=== PATIENT | female | born 2000 | race Caucasian/White ===

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

== ENCOUNTER 2021-07-04 16:14 | Emergency (ER) | payer OTHER ==
[2021-07-04 17:54] LABS: Basophils % (A) 1 %; Eosinophils % (A) 1 %; HCT 42.9 % (34.0-46.0); HGB 14.6 gm/dL (11.4-16.0); Lymphocytes # (A) 1.8 k/uL (1.0-4.8); Lymphocytes % (A) 29 %; MCH 31.3 pg (25.0-35.0); MCHC 33.9 g/dL (31.0-37.0); MCV 92.2 fL (80.0-100.0); Monocytes # (A) 0.3 k/uL (0-1.0); Monocytes % (A) 4 %; Neutrophils # (A) 3.8 k/uL (1.3-7.7); Neutrophils % (A) 62 %; Platelet Count 218 k/uL (150-450); RBC 4.66 m/uL (3.80-5.40); RDW 12.6 % (11.5-15.5); WBC 6.1 k/uL (3.8-10.6)
[2021-07-04 18:03] LABS: ALT 11 U/L (4-34); AST 25 U/L (14-36); African American GFR (CKD) >90 (>60 ml/min/1.73 sqM); Albumin 4.8 g/dL (3.5-5.0); Alkaline Phosphatase 54 U/L (38-126); Anion Gap 12 mmol/L; Blood Urea Nitrogen 14 mg/dL (7-17); Calcium 9.7 mg/dL (8.4-10.2); Carbon Dioxide 23 mmol/L (22-30); Chloride 104 mmol/L (98-107); Glucose 89 mg/dL (74-99); Non-African American GFR(CKD) >90 (>60 ml/min/1.73 sqM); Sodium 139 mmol/L (137-145); Total Bilirubin 0.4 mg/dL (0.2-1.3); Total Protein 7.6 g/dL (6.3-8.2)
[2021-07-04 18:50] VITALS: RESP 20; TEMP 99.1
--- NOTE | 2021-07-04 19:01 | XR ---
EXAMINATION TYPE: XR chest 2V DATE OF EXAM: 07/04/2021 COMPARISON: Chest radiograph April 07, 2017. HISTORY: Cough TECHNIQUE: Frontal and lateral views of the chest are obtained. FINDINGS: There is no focal air space opacity, pleural effusion, or pneumothorax seen. The cardiac silhouette size is within normal limits. The osseous structures are intact. IMPRESSION: No acute cardiopulmonary process.
--- NOTE | 2021-07-04 19:21 | ED ---
General Adult HPI - General Chief complaint: Upper Respiratory Infection Stated complaint: pneumonia, poss C-Diff Time Seen by Provider: 07/04/21 17:15 Source: patient, RN notes reviewed, old records reviewed Mode of arrival: ambulatory Limitations: no limitations - History of Present Illness Initial comments: This is a 21-year-old female presents emergency department stating that she was diagnosed with pneumonia 3 days ago patient states she's on Augmentin and Zithromax prednisone and Tessalon Perles. Patient states she still feels as though it's difficult to get a full breath and she still thinks she might have worsening pneumonia. Patient denies any significant chest pain. Patient denies any fever chills in fact states she's never had any fever. Patient states she's been tested for COVID His been negative. Patient states she does have an occasional cough. - Related Data Previous Rx's Medication Instructions Recorded Ondansetron Odt [Zofran ODT] 4 mg PO Q8HR PRN #20 tab 04/30/15 Ibuprofen [Motrin] 600 mg PO Q6HR PRN #20 tab 07/04/21 Allergies Allergy/AdvReac Type Severity Reaction Status Date / Time latex Allergy Rash/Hives Verified 07/04/21 17:16 codeine AdvReac altered Verified 07/04/21 17:16 mental-depression red dye AdvReac Nausea & Verified 07/04/21 17:16 Vomiting tuna fish Allergy Nausea & Uncoded 07/04/21 17:16 Vomiting Review of Systems ROS Statement: Those systems with pertinent positive or pertinent negative responses have been documented in the HPI. ROS Other: All systems not noted in ROS Statement are negative. Past Medical History Past Medical History: Hearing Disorder / Deafness Additional Past Medical History / Comment(s): Meningitis as infant; Migraines, History of Any Multi-Drug Resistant Organisms: None Reported Past Surgical History: No Surgical Hx Reported Past Psychological History: Anxiety, Bipolar, PTSD Smoking Status: Current every day smoker Past Alcohol Use History: Abuse, Daily, Heavy Past Drug Use History: Cocaine General Exam - General Exam Comments Initial Comments: GENERAL: Patient is well-developed and well-nourished. Patient is nontoxic and well- hydrated and is in no acute distress. ENT: Neck is soft and supple. No significant lymphadenopathy is noted. Oropharynx is clear. Moist mucous membranes. Neck has full range of motion without eliciting any pain. EYES: The sclera were anicteric and conjunctiva were pink and moist. Extraocular movements were intact and pupils were equal round and reactive to light. Eyelids were unremarkable. PULMONARY: Unlabored respirations. Good breath sounds bilaterally. No audible rales rhonchi or wheezing was noted. CARDIOVASCULAR: There is a regular rate and rhythm without any murmurs gallops or rubs. ABDOMEN: Soft and nontender with normal bowel sounds. SKIN: Skin is clear with no lesions or rashes and otherwise unremarkable. NEUROLOGIC: Patient is alert and oriented x3. Cranial nerves II through XII are grossly intact. Motor and sensory are also intact. Normal speech, volume and content. Symmetrical smile. MUSCULOSKELETAL: Normal extremities with adequate strength and full range of motion. No lower extremity swelling or edema. No calf tenderness. LYMPHATICS: No significant lymphadenopathy is noted PSYCHIATRIC: Normal psychiatric evaluation. Limitations: no limitations Course Vital Signs 07/04/21 07/04/21 07/04/21 17:12 18:43 18:49 Temperature 99 F 99.1 F Pulse Rate 75 69 Respiratory 18 24 20 Rate Blood Pressure 113/69 117/71 O2 Sat by Pulse 99 99 Oximetry Medical Decision Making - Medical Decision Making Chest x-ray shows no acute abnormality. - Lab Data Result diagrams: 07/04/21 17:35 07/04/21 17:35 Lab Results 07/04/21 07/04/21 07/04/21 Range/Units 17:35 17:35 19:03 WBC 6.1 (3.8-10.6) k/uL RBC 4.66 (3.80-5.40) m/uL Hgb 14.6 (11.4-16.0) gm/dL Hct 42.9 (34.0-46.0) % MCV 92.2 (80.0-100.0) fL MCH 31.3 (25.0-35.0) pg MCHC 33.9 (31.0-37.0) g/dL RDW 12.6 (11.5-15.5) % Plt Count 218 (150-450) k/uL MPV 7.0 Neutrophils % 62 % Lymphocytes % 29 % Monocytes % 4 % Eosinophils % 1 % Basophils % 1 % Neutrophils # 3.8 (1.3-7.7) k/uL Lymphocytes # 1.8 (1.0-4.8) k/uL Monocytes # 0.3 (0-1.0) k/uL Eosinophils # 0.0 (0-0.7) k/uL Basophils # 0.0 (0-0.2) k/uL D-Dimer <0.17 (<0.60) mg/L FEU Sodium 139 (137-145) mmol/L Potassium 4.0 (3.5-5.1) mmol/L Chloride 104 (98-107) mmol/L Carbon Dioxide 23 (22-30) mmol/L Anion Gap 12 mmol/L BUN 14 (7-17) mg/dL Creatinine 0.65 (0.52-1.04) mg/dL Est GFR (CKD-EPI)AfAm >90 (>60 ml/min/1.73 sqM) Est GFR (CKD-EPI)NonAf >90 (>60 ml/min/1.73 sqM) Glucose 89 (74-99) mg/dL Calcium 9.7 (8.4-10.2) mg/dL Total Bilirubin 0.4 (0.2-1.3) mg/dL AST 25 (14-36) U/L ALT 11 (4-34) U/L Alkaline Phosphatase 54 (38-126) U/L Total Protein 7.6 (6.3-8.2) g/dL Albumin 4.8 (3.5-5.0) g/dL Disposition Clinical Impression: Pleurisy Disposition: HOME SELF-CARE Condition: Good Instructions (If sedation given, give patient instructions): Pleurisy (ED) Prescriptions: Ibuprofen [Motrin] 600 mg PO Q6HR PRN #20 tab PRN Reason: For pain Is patient prescribed a controlled substance at d/c from ED?: No Referrals: Dax Hairston MD [Primary Care Provider] - 1-2 days Time of Disposition: 19:52
[2021-07-04 20:08] VITALS: BP 127/82; PULSE 82
== END 2021-07-04 20:16 | disposition home or self-care (01) ==
LOC: EC 16:14
DX: R09.1 Pleurisy (principal); F41.9 Anxiety disorder, unspecified; F31.9 Bipolar disorder, unspecified; F17.200 Nicotine dependence, unspecified, uncomplicated; Z20.822 Contact with and (suspected) exposure to COVID-19; Z91.040 Latex allergy status; Z88.6 Allergy status to analgesic agent; Z91.013 Allergy to seafood
CPT/HCPCS: 36415; 71046; 80053; 85025; 85379; 99283

== ENCOUNTER → 2022-06-30 | Outpatient (CLI) | payer OTHER ==
--- NOTE | 2022-06-30 08:33 | US ---
EXAMINATION TYPE: Transabdominal DATE OF EXAM: 06/30/2022 7:31 AM COMPARISON: NONE CLINICAL HISTORY: Z36.89 ENCOUNTER FOR OTHER SPECIFIED SCR. confirm dates. Positive beta hC G test. EXAM PERFORMED: Transabdominal (TA) EXAM MEASUREMENTS: GESTATIONAL AGE / DATING Physician Established: Not yet established Dates by LMP: (14 weeks/1 days) EDC: 12/28/2022 Dates by First Scan: No previous this is first scan Dates by Current Scan for: (14 weeks/2 days) EDC: 12/27/2022 MATERNAL ANATOMY Uterus: 14 x 6.9 x 9.0 cm Right Ovary: obscured by bowel gas Left Ovary: obscured by bowel gas Post CDS / Adnexa: wnl Presence of free fluid: no Presence of corpus luteal cyst: no Presence of subchorionic bleed: yes .8 x .8 x .8 cm. GESTATION / SURVEY CRL: .82 cm (14 weeks/2 days) Heart Rate: 152 bpm Rhythm: Normal IUP: Viable IUP Single live intrauterine gestation is confirmed as gestational sac and pole are seen. Yolk sac not clearly identified. Possible tiny subchorionic hemorrhage measuring near 8 mm adjacent to gestati onal sac. No free fluid in pelvis. Neither ovary identified. No suspicious adnexal mass seen. IMPRESSION: Single live intrauterine gestation is confirmed. Mean crown-rump length 8.3 cm correspond ing to 14 weeks 2 day old fetus
== END | disposition home or self-care (01) ==
LOC: RADUSWWP 07:05
PROVIDERS: ATTEND Obstetrics & Gynecology
DX: Z36.89 Encounter for other specified antenatal screening (principal); Z3A.14 14 weeks gestation of pregnancy
CPT/HCPCS: 76801

== ENCOUNTER → 2022-08-25 | Outpatient (CLI) | payer OTHER | END | disposition home or self-care (01) | LOC: LABWHC1 12:41 | PROVIDERS: ATTEND Obstetrics & Gynecology | DX: Z34.82 Encounter for supervision of other normal pregnancy, second trimester (principal); Z3A.00 Weeks of gestation of pregnancy not specified | CPT/HCPCS: 36415; 82105; 82677; 84702; 86336 ==

== ENCOUNTER 2022-11-25 09:11 | Inpatient (IN) | payer OTHER ==
[2022-11-25] MEDS ORDERED: LIDOCAINE 0.5% (PF) 5 MG/ML (50 ML SDV) SQ PRN (09:45)
[2022-11-25] MEDS ORDERED: TERBUTALINE 1 MG/ML VIAL SQ PRN (09:45)
[2022-11-25] MEDS: LACTATED RINGERS 1,000 ML IV SCH ×2 (10:20→18:06)
[2022-11-25] MEDS ORDERED: AMPICILLIN 2,000 MG in SODIUM CHLORIDE 0.9% 100 ML IVPB STA (10:37)
[2022-11-25 10:42] LABS: Basophils # (A) 0.1 k/uL (0-0.2); Basophils % (A) 0 %; Eosinophils # (A) 0.1 k/uL (0-0.7); Eosinophils % (A) 1 %; HCT 31.7 % (34.0-46.0); HGB 11.3 gm/dL (11.4-16.0); Lymphocytes # (A) 1.7 k/uL (1.0-4.8); Lymphocytes % (A) 12 %; MCH 32.6 pg (25.0-35.0); MCHC 35.8 g/dL (31.0-37.0); Mean Platelet Volume 8.5; Monocytes # (A) 0.8 k/uL (0-1.0); Monocytes % (A) 5 %; Neutrophils # (A) 11.3 k/uL (1.3-7.7); Neutrophils % (A) 80 %; Platelet Count 229 k/uL (150-450); RBC 3.48 m/uL (3.80-5.40); RDW 12.4 % (11.5-15.5)
[2022-11-25] MEDS ORDERED: OXYTOCIN 30 UNITS/500 ML NS 30 UNIT in SALINE 1 500ML.BAG IV SCH (10:45)
[2022-11-25] MEDS ORDERED: SODIUM CHLORIDE 0.9% 100 ML BAG ONE (13:12)
[2022-11-25] MEDS ORDERED: BUPIVACAINE (PF) 0.25% 30 ML VIAL ONE (13:12)
[2022-11-25] MEDS ORDERED: fentaNYL (PF) 50 MCG/ML 5 ML AMP ONE (13:12)
[2022-11-25] MEDS ORDERED: AMPICILLIN 1,000 MG in SODIUM CHLORIDE 0.9% 50 ML IVPB SCH (14:45)
[2022-11-25 16:01] LABS: Amphetamine Screen,Urine Not Detected (NotDetected); Benzodiazepines Screen,Urine Not Detected (NotDetected); Cocaine Screen,Urine Not Detected (NotDetected); Opiate Screen,Urine Not Detected (NotDetected); Phencyclidine Screen,Urine Not Detected (NotDetected); Urn Cannabinoid Scrn Detected (NotDetected)
[2022-11-25 16:02] LABS: Barbiturate Screen,Urine Not Detected (NotDetected); Methadone Screen, Urine Not Detected (NotDetected); Oxycodone Screen, Urine Not Detected (NotDetected); Tricyclic Antidepressant,Urine Not Detected (NotDetected)
--- NOTE | 2022-11-25 16:42 | P.HPOB ---
History of Present Illness H&P Date: 11/25/22 Chief Complaint: srom 22 year old presents at 35 weeks 2 days with SROM at 12:30 AM. Patient presented to labor and delivery in the morning and was 1-2 cm dilated, 70% e ffaced, and -1 station. She is olive irregularly. heart tones 135 with moderate variability and reactive. Review of Systems All systems: negative Constitutional: Denies chills, Denies fever Eyes: denies blurred vision, denies pain Ears, nose, mouth and throat: Denies headache, Denies sore throat Cardiovascular: Denies chest pain, Denies shortness of breath Respiratory: Denies cough Gastrointestinal: Denies abdominal pain, Denies diarrhea, Denies nausea, Denies vomiting Genitourinary: Denies dysuria, Denies hematuria Musculoskeletal: Denies myalgias Integumentary: Denies pruritus, Denies rash Neurological: Denies numbness, Denies weakness Psychiatric: Denies anxiety, Denies depression Endocrine: Denies fatigue, Denies weight change Past Medical History Past Medical History: Hearing Disorder / Deafness Additional Past Medical History / Comment(s): Meningitis as ; Migraines. OB history: Patient has had limited care as she went to maternal medicine to see what bipolar medication should she be on and didn't realize she needed to also see Dr. Salguero. She has used THC through the and BuSpar. Blood type is O-, antibodies negative, rubella immune, hepatitis B negative HIV negative GBS unknown. History of Any Multi-Drug Resistant Organisms: None Reported Past Surgical History: No Surgical Hx Reported Past Anesthesia/Blood Transfusion Reactions: No Reported Reaction Past Psychological History: Anxiety, Bipolar, PTSD Smoking Status: Current every day smoker Past Alcohol Use History: Abuse, Daily, Heavy Additional Past Alcohol Use History / Comment(s): Used to attend , no alcohol use during Past Drug Use History: Cocaine, Marijuana Additional Drug Use History / Comment(s): Current every day vape and THC use during - Past Family History Mother History Unknown: Yes Medications and Allergies Home Medications Medication Instructions Recorded Confirmed Type busPIRone HCl [Buspar] 5 mg PO BID 11/25/22 11/25/22 History Allergies Allergy/AdvReac Type Severity Reaction Status Date / Time buspirone [From BuSpar] Allergy Rash/Hives Verified 11/25/22 09:31 latex Allergy Rash/Hives Verified 11/25/22 09:31 codeine AdvReac altered Verified 11/25/22 09:31 mental-depression red dye AdvReac Nausea & Verified 11/25/22 09:31 Vomiting tuna fish Allergy Nausea & Uncoded 11/25/22 09:31 Vomiting Exam Osteopathic Statement: *. No significant issues noted on an osteopathic structural exam other than those noted in the History and Physical/Consult. Vital Signs Temp Pulse Resp BP Pulse Ox 11/25/22 10:32 98.1 F 64 17 131/62 97 11/25/22 09:40 98.1 F 64 17 131/62 94 L Intake and Output 11/25/22 11/25/22 11/25/22 06:59 14:59 22:59 Output Total 400 Balance -400 Output: Urine 400 Other: Weight 82.1 kg Heart: Regular rate and rhythm Lungs: Clear to auscultation bilaterally Abdomen: Soft, nontender Extremities: Negative Homans sign Results Result Diagrams: 11/25/22 10:20 Abnormal Lab Results - Last 24 Hours (Table) 11/25/22 11/25/22 Range/Units 10:20 14:30 WBC 14.0 H (3.8-10.6) k/uL RBC 3.48 L (3.80-5.40) m/uL Hgb 11.3 L (11.4-16.0) gm/dL Hct 31.7 L (34.0-46.0) % Neutrophils # 11.3 H (1.3-7.7) k/uL U Marijuana (THC) Screen Detected H (NotDetected) Assessment and Plan (1) premature rupture of membranes Current Visit: Yes Status: Acute Code(s): O42.919 - PRETRM JUAN ROM, UNSP TIME BETW RUPT AND ONST LABR, UNSP TRI SNOMED Code(s): 729997184 Plan: 1. Admit to family place 2. Antibiotic prophylaxis 3. Pitocin augmentation 4. UDS 5. Epidural for pain management
[2022-11-25] MEDS ORDERED: diphenhydrAMINE 50 MG CAP PO PRN (17:27)
[2022-11-25] MEDS ORDERED: ZOLPIDEM 5 MG TAB PO PRN (17:27)
[2022-11-25] MEDS ORDERED: diphenhydrAMINE 50 MG/ML 1 ML VIAL IVP PRN ×2 (17:27)
[2022-11-25] MEDS ORDERED: BENZOCAINE/MENTHOL SPRAY 1 GM/SPRAY AEROSOL TOPICAL PRN (17:27)
[2022-11-25] MEDS ORDERED: LANOLIN CREAM 5 GM TUBE TOPICAL PRN (17:27)
[2022-11-25] MEDS ORDERED: diphenhydrAMINE 25 MG CAP PO PRN (17:27)
[2022-11-25] MEDS ORDERED: SIMETHICONE 80 MG CHEWABLE PO PRN (17:27)
[2022-11-25] MEDS ORDERED: HYDROCORTISONE 2.5% RECTAL CREAM 30 GM TUBE RECTAL PRN (17:27)
[2022-11-25 18:00] VITALS: RESP 16
[2022-11-25] MEDS: IBUPROFEN 600 MG TAB PO PRN (19:29)
[2022-11-25] MEDS: SENNOSIDES-DOCUSATE SODIUM 1 EACH TAB PO SCH (19:29)
[2022-11-25] MEDS ORDERED: Rhogam IMMUNE GLOBULIN 1,500 UNIT/1 ML IM ONE (23:21)
[2022-11-25] MEDS: ACETAMINOPHEN TAB 325 MG TAB PO PRN (23:27)
[2022-11-26 06:49] LABS: Basophils % (A) 0 %; Eosinophils # (A) 0.2 k/uL (0-0.7); Eosinophils % (A) 1 %; HCT 28.9 % (34.0-46.0); HGB 10.2 gm/dL (11.4-16.0); Lymphocytes # (A) 1.6 k/uL (1.0-4.8); Lymphocytes % (A) 11 %; MCH 32.4 pg (25.0-35.0); MCHC 35.3 g/dL (31.0-37.0); MCV 91.9 fL (80.0-100.0); Mean Platelet Volume 8.2; Monocytes # (A) 1.1 k/uL (0-1.0); Monocytes % (A) 7 %; Neutrophils # (A) 11.7 k/uL (1.3-7.7); Neutrophils % (A) 79 %; Platelet Count 232 k/uL (150-450); RBC 3.14 m/uL (3.80-5.40); RDW 12.4 % (11.5-15.5); WBC 14.8 k/uL (3.8-10.6)
[2022-11-26] MEDS: ACETAMINOPHEN TAB 325 MG TAB PO PRN ×2 (06:56→14:09)
[2022-11-26] MEDS: SENNOSIDES-DOCUSATE SODIUM 1 EACH TAB PO SCH (07:57)
--- NOTE | 2022-11-26 09:07 | P.PROBDLV ---
Vaginal Delivery Note - . Vaginal Delivery Note: 22 year old presents at 35 weeks 2 days with SROM at 12:30 AM. Patient presented to labor and delivery in the morning and was 1-2 cm dilated, 70% effaced, and -1 station. She is olive irregularly. heart tones 135 with moderate variability and reactive. She presented in the morning with a positive amnio sure. She was noted to be leaking clear fluid. Antibiotics were started for GBS prophylaxis. Pitocin augmentation was started. Her cervix was completely dilated by 1559. She pushed, delivered a viable male infant over intact perineum under epidural anesthesia at 1610. Head delivered OA, nuchal cord 1 easily reduced, anterior shoulder delivered gentle downward guidance followed by posterior shoulder and rest of body. Nose and mouth bulb suctioned, cord clamped and cut, infant placed mother's abdomen. Apgars 8, 9, weight 6 lbs. 4 oz. Placenta delivered spontaneously, intact with three-vessel cord at 1614. Vagina, cervix, perineum inspected. Second-degree midline laceration was repaired with 3-0 Vicryl. Estimated blood loss 400 mL. Mother and baby in stable condition.
--- NOTE | 2022-11-26 09:11 | P.DS ---
Providers Date of admission: 11/25/22 09:38 Expected date of discharge: 11/26/22 Attending physician: Italia Salguero Primary care physician: Stated None - Discharge Diagnosis(es) (1) premature rupture of membranes Current Visit: Yes Status: Acute Hospital Course: Patient presented with spontaneous rupture of membranes at 35 weeks and 2 days. She underwent a normal vaginal delivery with Pitocin augmentation and antibiotic prophylaxis. course was uncomplicated for the patient. She denies nausea, vomiting, chest pain, shortness of breath or calf pain. The baby was transferred to [place] for her respiratory distress. Patient requests to be discharged home today. She is stable and will be discharged home day #1 to follow-up with Dr. Salguero in 6 weeks. Plan - Discharge Summary New Discharge Prescriptions: New RX: Ibuprofen [Motrin] 600 mg PO Q6HR PRN #30 tab PRN Reason: Mild Pain (Scale 1 To 3) No Action busPIRone HCl [Buspar] 5 mg PO BID Discharge Medication List busPIRone HCl [Buspar] 5 mg PO BID 11/25/22 [History] RX: Ibuprofen [Motrin] 600 mg PO Q6HR PRN #30 tab 11/26/22 [Rx] Follow up Appointment(s)/Referral(s): Italia Salguero DO [Doctor of Osteopathic Medicine] - 6 Weeks Discharge Disposition: HOME SELF-CARE
[2022-11-26] MEDS: IBUPROFEN 600 MG TAB PO PRN (09:39)
[2022-11-26 12:21] VITALS: BP 116/69; PULSE 69; TEMP 98.6
--- NOTE | 2022-11-26 14:46 | P.MSEPDOC ---
Presenting Problems - Arrival Data Date of Arrival on Unit: 11/25/22 Time of Arrival on Unit: 09:38 Mode of Transport: Wheelchair - Complaint OB-Reason for Admission/Chief Complaint: Rule Out SROM Comment: Pt presents to triage with c/o "losing mucus plug around 0030 or 0100" and leaking fluid throughout the night. Medical History - Information : 1 Para: 0 Term: 0 : 0 Abortions: Spontaneous or Elective: 0 Number of Living Children: 0 - Gestational Age Gestational Age by BETTY (wks/days): 35 Weeks and 3 Days Review of Systems - Review of Systems Constitutional: No problems Breast: No problems ENT: No problems Cardiovascular: No problems Respiratory: No problems Gastrointestinal: No problems Genitourinary: No problems Musculoskeletal: No problems Neurological: No problems Skin: No problems Vital Signs - Temperature Temperature: 98.6 F Temperature Source: Oral - Pulse Pulse Oximetery Pulse Rate: 69 Pulse Assessment Method: Pulse Oximetry - Respirations Respiratory Rate: 16 Oxygen Delivery Method: Room Air O2 Sat by Pulse Oximetry: 99 - Blood Pressure Right Arm Blood Pressure: 116/69 Blood Pressure Mean: 84 Blood Pressure Source: Automatic Cuff Medical Screen Scoring - Cervical Exam Dilation (cm): 1.5 Effacement (%): 60 Station: -1 Membranes: Ruptured - Uterine Contractions Resting: Soft to palpation - Assessment - Baby A Baseline FHR: 125 Heart Rate - NICHD Category: Category I (Normal) NST: Reactive Physician Notification - Physician Notified Physician Notified Date: 11/25/22 Physician Notified Time: 09:40 Physician: Mirian Khan New Order Received: Yes - Notification Comment Comment: RN spoke with Dr. Khan regarding triage pt c/o losing her mucus plug around [id number] this morning and leaking ever since. Reported maternal vital signs, vilma 1 FHT, reactive NST, no contx, positive amnisure and cervical exam of 1.5/60/-1. Orders received to admit pt for labor, start antibiotics for unknown GBS and start pitocin Maternal Triage Index - Maternal Triage Index Presenting for scheduled procedure w/no complaint: No - Stat/Priority 1 Stat Priority 1: No - Urgent/Priority 2 Urgent Priority 2: No - Prompt/Priority 3 Prompt Priority 3: Yes Criteria Met for Priority 3: c/o SROM/leaking 35 2/7 weeks Disposition - Disposition OB Disposition: Admit, LDRP Suite Transferred to:: Suite 6 I agree with the RN Medical Screening Exam: Yes Case reviewed; plan agreed upon as documented in EMR&OBIX.: Yes Diagnosis: ENCOUNTER FOR FULL-TERM UNCOMPLICATED DELIVERY
== END 2022-11-26 14:54 | disposition home or self-care (01) | DRG 806 ==
LOC: FBPOP 09:11 → 4FBP 09:38
PROVIDERS: ADMIT Obstetrics & Gynecology; ATTEND Obstetrics & Gynecology
PROC: 10E0XZZ Delivery of Products of Conception, External Approach (ICD-10-PCS; principal; 2022-11-25)
PROC: 0KQM0ZZ Repair Perineum Muscle, Open Approach (ICD-10-PCS; 2022-11-25)
PROC: 4A0HXCZ Measurement of Products of Conception, Cardiac Rate, External Approach (ICD-10-PCS; 2022-11-25)
PROC: 3E033VJ Introduction of Other Hormone into Peripheral Vein, Percutaneous Approach (ICD-10-PCS; 2022-11-25)
DX: O42.913 Preterm premature rupture of membranes, unspecified as to length of time between rupture and onset of labor, third trimester (principal); O99.324 Drug use complicating childbirth; Z37.0 Single live birth; F31.9 Bipolar disorder, unspecified; F43.10 Post-traumatic stress disorder, unspecified; H91.90 Unspecified hearing loss, unspecified ear; O26.893 Other specified pregnancy related conditions, third trimester; O69.81X0 Labor and delivery complicated by cord around neck, without compression, not applicable or unspecified; O99.334 Smoking (tobacco) complicating childbirth; O70.1 Second degree perineal laceration during delivery; O99.344 Other mental disorders complicating childbirth; Z3A.35 35 weeks gestation of pregnancy; F12.90 Cannabis use, unspecified, uncomplicated; F17.290 Nicotine dependence, other tobacco product, uncomplicated; Z79.899 Other long term (current) drug therapy; Z86.61 Personal history of infections of the central nervous system; Z91.040 Latex allergy status; Z91.013 Allergy to seafood; Z91.048 Other nonmedicinal substance allergy status
CPT/HCPCS: 59025; 80306; 84112; 85025; 85461; 86850; 86870; 86880; 86900; 86901; 88307; 99213

== ENCOUNTER → 2023-07-04 | Outpatient (CLI) | payer OTHER ==
--- NOTE | 2023-07-04 14:17 | US ---
EXAMINATION TYPE: US pelvic complete DATE OF EXAM: 07/04/2023 COMPARISON: Pelvic ultrasound 01/17/2023 CLINICAL INDICATION: Female, 23 years old with history of R10.2 PELVIC AND PERINEAL PAIN; TECHNIQUE: Transabdominal (TA). Transabdominal sonographic images of the pelvis were acquired. EXAM MEASUREMENTS: Uterus: 8.9 x 3.5 x 5.3 cm Endometrial Stripe: 0.4 cm Right Ovary: 3.3 x 2.0 x 1.8 cm Left Ovary: 2.5 x 1.8 x 1.8 cm 1. Uterus: Anteverted IUD appears appropriately placed 2. Endometrium: wnl 3. Right Ovary: wnl 4. Left Ovary: wnl 5. Bilateral Adnexa: wnl 6. Posterior cul-de-sac: no free fluid seen Unremarkable anteverted uterus. Endometrium is within normal limits with IUD in place. Both ovaries a re within normal limits. No free fluid. IMPRESSION: 1. No acute pelvic process. 2. IUD appears in appropriate position.
== END | disposition home or self-care (01) ==
LOC: RADUSWWP 12:59
PROVIDERS: ATTEND Obstetrics & Gynecology
DX: R10.2 Pelvic and perineal pain (principal); Z97.5 Presence of (intrauterine) contraceptive device
CPT/HCPCS: 76856

== ENCOUNTER → 2024-01-03 | Outpatient (CLI) | payer OTHER ==
--- NOTE | 2024-01-04 07:49 | US ---
EXAMINATION TYPE: US pelvic complete DATE OF EXAM: 01/03/2024 COMPARISON: 07/04/23 CLINICAL INDICATION: Female, 23 years old with history of N92.1 EXCESSIVE MENSTRATION Z97.5 IUD; Abno rmal bleeding with IUD. TECHNIQUE: . Transabdominal sonographic images of the pelvis were acquired. Date of LMP: Pt states around 3 weeks ago EXAM MEASUREMENTS: Uterus: 6.9 x 4.7 x 4.0 cm Endometrial Stripe: 0.6 cm Right Ovary: 3.3 x 2.5 x 2.6 cm Left Ovary: 4.0 x 2.9 x 2.2 cm 1. Uterus: Anteverted wnl 2. Endometrium: IUD appears to be in place 3. Right Ovary: Multiple dominant follicles seen 4. Left Ovary: Dominant follicle seen measuring 5. Bilateral Adnexa: wnl 6. Posterior cul-de-sac: wnl IMPRESSION: IUD appears appropriately placed. Multiple follicles seen bilaterally.
== END | disposition home or self-care (01) ==
LOC: RADUSWWP 16:00
PROVIDERS: ATTEND Obstetrics & Gynecology
DX: N92.1 Excessive and frequent menstruation with irregular cycle (principal); Z97.5 Presence of (intrauterine) contraceptive device
CPT/HCPCS: 76856

== ENCOUNTER → 2024-02-07 | Day surgery (SDC) | payer OTHER ==
[2024-02-06 08:48] VITALS: BMI 21.2
[~2024-02-07] MED LIST: LIDOCAINE 1% (10MG/ML) FOR IV START INTRADERMA PRN; LIDOCAINE 1% INJ 10MG/ML (20 ML MDV) ONE; PROPOFOL 10 MG/ML 20 ML VIAL IV ONE
[2024-02-07] MEDS: LACTATED RINGERS 1,000 ML IV SCH (08:25)
--- NOTE | 2024-02-07 08:31 | P.GSHP ---
History of Present Illness H&P Date: 02/07/24 Chief Complaint: GERD This a 20-year-old female with history of GERD. Patient presents today for EGD. Past Medical History Past Medical History: GERD/Reflux, Hearing Disorder / Deafness Additional Past Medical History / Comment(s): Meningitis as ; Migraines History of Any Multi-Drug Resistant Organisms: None Reported Past Surgical History: No Surgical Hx Reported Past Anesthesia/Blood Transfusion Reactions: No Reported Reaction Smoking Status: Current every day smoker - Past Family History Mother History Unknown: Yes Family Medical History: Cancer Medications and Allergies Home Medications Medication Instructions Recorded Confirmed Type Ibuprofen [Motrin] 600 mg PO Q6HR PRN #30 tab 11/26/22 02/06/24 Rx Ferrous Sulfate [Feosol] 325 mg PO Q3D 02/06/24 02/06/24 History Allergies Allergy/AdvReac Type Severity Reaction Status Date / Time buspirone [From BuSpar] Allergy Rash/Hives Verified 02/07/24 08:13 lamotrigine [From Lamictal] Allergy LIESTH Verified 02/07/24 08:13 AMANDA SYMDROME latex Allergy Rash/Hives Verified 02/07/24 08:13 codeine AdvReac altered Verified 02/07/24 08:13 mental-depression red dye AdvReac Nausea & Verified 02/07/24 08:13 Vomiting tuna fish Allergy Nausea & Uncoded 02/07/24 08:13 Vomiting Surgical - Exam Vital Signs Temp Pulse Resp BP Pulse Ox 98.1 F 80 16 120/61 99 02/07/24 08:20 02/07/24 08:20 02/07/24 08:20 02/07/24 08:20 02/07/24 08:20 - General well developed, well nourished, no distress - Eyes PERRL - ENT normal pinna - Neck no masses - Respiratory normal expansion - Cardiovascular Rhythm: regular - Abdomen Abdomen: soft, non tender Assessment and Plan Assessment: GERD. We'll perform EGD.
--- NOTE | 2024-02-07 08:42 | P.OP ---
Date of Procedure: 02/07/24 Preoperative Diagnosis: GERD Postoperative Diagnosis: Gastritis Procedure(s) Performed: EGD Anesthesia: MAC Surgeon: Ronen Jolly Pathology: other (Antrum) Condition: stable Disposition: PACU Description of Procedure: The patient's placed on the endoscopy table in the lateral position. She received IV sedation. The gastroscope placed oropharynx and then placed in the esophagus and into the stomach. Scope was placed through the pylorus. The first and second portion of the duodenum appeared normal. Scope was then brought back the antrum was mildly inflamed. A biopsies the scope was then retroflexed and the remainder the stomach appeared normal. The GE junction was at 40 cm. The distal esophagus. Normal. The proximal esophagus appeared normal. Scope withdrawn for patient. The patient's symptoms of indigestion a HIDA scan was ordered.
[2024-02-07 08:50] VITALS: TEMP 98.1
[2024-02-07 10:00] VITALS: BP 101/61; PULSE 60; RESP 16
--- NOTE | 2024-02-08 07:32 | NM ---
EXAMINATION TYPE: NM hepatobiliary w CCK DATE OF EXAM: 02/07/2024 COMPARISON: NONE CLINICAL INDICATION: Female, 23 years old with history of Indigestion; TECHNIQUE: After the intravenous administration of 5.04 mCi Tc 99m Mebrofenin hepatobiliary scintigra phy is performed. Immediate images post injection. FINDINGS: There is satisfactory initial accumulation of tracer by the liver. The gallbladder is visualized wit hin 8 minutes. The small bowel activity is noted within 54 minutes. At 75 minutes, CCK was administ ered, patient was injected with 1.13 mcg of Kinevac, and gallbladder ejection fraction is calculated at 51 %, in the normal range. IMPRESSION: No scintigraphic evidence for acute/chronic cholecystitis or biliary dyskinesia.
== END | disposition home or self-care (01) ==
LOC: ORWHC2ENDO 07:50
PROVIDERS: ATTEND Surgery
DX: K29.50 Unspecified chronic gastritis without bleeding (principal); K21.9 Gastro-esophageal reflux disease without esophagitis; F17.200 Nicotine dependence, unspecified, uncomplicated; Z79.899 Other long term (current) drug therapy; Z91.040 Latex allergy status; Z88.5 Allergy status to narcotic agent; Z88.8 Allergy status to other drugs, medicaments and biological substances; G43.909 Migraine, unspecified, not intractable, without status migrainosus
CPT/HCPCS: 81025; 88305; 78227; 43239; A9537; J2805; J2001; J2704

== ENCOUNTER → 2024-02-11 | Outpatient (CLI) | payer OTHER ==
--- NOTE | 2024-02-16 15:30 | MR ---
EXAMINATION TYPE: MR liver wo/w con DATE OF EXAM: 02/11/2024 10:05 PM CLINICAL INDICATION:Female, 23 years old with history of K21.9 GASTRO-ESOPHAGEAL REFLUX DISEASE WITHO UT ESO; PH[facility], Abnormal CT. Liver mass. COMPARISON: None TECHNIQUE: Multiplanar multi-sequence imaging was performed without contrast. Post contrast imaging was performed. Post IV contrast subtraction images were also submitted for review. IV Contrast: 5.5 cc Gadobutrol FINDINGS: LOWER CHEST: No gross irregularity. ABDOMEN Liver: No evidence for hepatic steatosis or cirrhosis. There is a 24 x 17 mm observation the left hep atic lobe which densities arterial phase enhancement which equilibrium dates on delayed imaging. Gallbladder and Bile ducts: No evidence for ductal dilation, or biliary stricture or evidence of chol edocholithiasis. The gallbladder is within normal limits. Pancreas: No ductal dilation. No evidence for solid mass. Spleen: Normal for size. Adrenal glands: Unremarkable. Kidneys: No evidence for obstructive uropathy. No suspicious renal masses. Stomach and Bowel: No evidence for bowel wall thickening or evidence for obstruction. Retroperitoneum/Peritoneum: No evidence of pneumoperitoneum or free fluid. Vasculature: No aortic aneurysm. Musculoskeletal: The osseous structures appear intact. Lymph Nodes: No gross evidence for lymphadenopathy. Abdominal wall: Unremarkable. IMPRESSION: Left hepatic lobe 24 x 17 mm arterial phase enhancing observation which becomes isointense to backgro und liver on delayed imaging findings favor benign etiology such as hepatic adenoma.
== END | disposition home or self-care (01) ==
LOC: RADMRIMAIN 21:15
PROVIDERS: ATTEND Surgery
DX: K21.9 Gastro-esophageal reflux disease without esophagitis (principal); K76.9 Liver disease, unspecified; R16.0 Hepatomegaly, not elsewhere classified
CPT/HCPCS: 74183; A9585

== ENCOUNTER 2024-03-25 01:22 | Emergency (ER) | payer OTHER ==
--- NOTE | 2024-03-25 02:03 | ED ---
Nausea/Vomiting/Diarrhea HPI - General Chief complaint: Nausea/Vomiting/Diarrhea Stated complaint: Vomiting Time Seen by Provider: 03/25/24 02:02 Source: patient, family, RN notes reviewed Mode of arrival: ambulatory Limitations: no limitations - History of Present Illness Initial comments: 24-year-old female presented to the ER with a chief complaint of nausea and vomiting. Patient states yesterday while shopping at [employer] she had an episode of emesis. She reports she walked out of the parking lot and continued to have multiple episodes of emesis. She does report bright red blood in her vomit. She states that Dr. Jolly has diagnosed her with gastritis. She states she has not been able to keep anything down since the vomiting started. She denies any constipation/diarrhea, fevers. She does endorse mild chills. Denies any chest pain, shortness of breath, cough, congestion, abdominal pain urinary complaints or peripheral edema. - Related Data Home Medications Medication Instructions Recorded Confirmed Ferrous Sulfate [Feosol] 325 mg PO Q3D 02/06/24 02/06/24 Previous Rx's Medication Instructions Recorded Ibuprofen [Motrin] 600 mg PO Q6HR PRN #30 tab 11/26/22 Ondansetron Odt [Zofran Odt] 4 mg PO Q8HR PRN #10 tab 03/25/24 Allergies Allergy/AdvReac Type Severity Reaction Status Date / Time buspirone [From BuSpar] Allergy Rash/Hives Verified 03/25/24 01:42 lamotrigine [From Lamictal] Allergy LISETH Verified 03/25/24 01:42 AMANDA SYMDROME latex Allergy Rash/Hives Verified 03/25/24 01:42 codeine AdvReac altered Verified 03/25/24 01:42 mental-depression red dye AdvReac Nausea & Verified 03/25/24 01:42 Vomiting tuna fish Allergy Nausea & Uncoded 03/25/24 01:42 Vomiting Review of Systems ROS Statement: Those systems with pertinent positive or pertinent negative responses have been documented in the HPI. ROS Other: All systems not noted in ROS Statement are negative. Past Medical History Past Medical History: GERD/Reflux, Hearing Disorder / Deafness Additional Past Medical History / Comment(s): Meningitis as infant; Migraines History of Any Multi-Drug Resistant Organisms: None Reported Past Surgical History: No Surgical Hx Reported Past Anesthesia/Blood Transfusion Reactions: No Reported Reaction Past Psychological History: Anxiety, Bipolar, PTSD Smoking Status: Current every day smoker, Vaper Past Alcohol Use History: None Reported Past Drug Use History: Marijuana - Past Family History Mother History Unknown: Yes Family Medical History: Cancer General Exam - General Exam Comments Initial Comments: Visual Physical Exam Vital signs reviewed General: Well-appearing, nontoxic, no acute distress. Head: Normocephalic, atraumatic Eyes: PERRLA, EOMI ENT: Airway patent Chest: Nonlabored breathing Skin: No visual rash, normal skin tone Neuro: Alert and oriented 3 Musculoskeletal: No gross abnormalities Limitations: no limitations General appearance: alert, in no apparent distress Respiratory exam: Present: normal lung sounds bilaterally. Absent: respiratory distress, wheezes, rales, rhonchi, stridor Cardiovascular Exam: Present: regular rate, normal rhythm, normal heart sounds. Absent: systolic murmur, diastolic murmur, rubs, gallop, clicks GI/Abdominal exam: Present: soft, normal bowel sounds. Absent: distended, tenderness, guarding, rebound, rigid Skin exam: Present: warm, dry, intact, normal color. Absent: rash Course Vital Signs 03/25/24 03/25/24 01:40 04:47 Temperature 97.8 F Pulse Rate 92 72 Respiratory 18 18 Rate Blood Pressure 123/53 110/69 O2 Sat by Pulse 99 100 Oximetry Medical Decision Making - Medical Decision Making I performed the quick note portion of this chart. Electronically signed by Edge PA-C Was pt. sent in by a medical professional or institution ([facility], ACCOUNTING MACHINE SERVICER, urgent care, hospital, or [facility]...) When possible be specific @ -No Did you speak to anyone other than the patient for history (EMS, parent, family, police, friend...)? What history was obtained from this source @ -No Did you review nursing and triage notes (agree or disagree)? Why? @ -I reviewed and agree with nursing and triage notes Were old charts reviewed (outside hosp., previous admission, EMS record, old EKG, old radiological studies, urgent care reports/EKG's, [facility] records)? Report findings @ -No old charts were reviewed Differential Diagnosis (chest pain, altered mental status, abdominal pain women, abdominal pain men, vaginal bleeding, weakness, fever, dyspnea, syncope, headache, dizziness, GI bleed, back pain, seizure, CVA, palpatations, mental health, musculoskeletal)? @ -Differential Abdominal Pain Women: Appendicitis, Cholecystitis, diverticulosis, ischemic bowel, pancreatitis, hepatitis, UTI, gastroenteritis, AAA, incarcerated hernia, bowel obstruction, constipation, inflammatory bowel, hepatitis, peptic ulcer disease, splenic infarction, perforated viscus, vulvitis, ovarian torsion, PID, kidney stone, placenta abruption, this is not meant to be an all-inclusive list EKG interpreted by me (3pts min.). @ -None X-rays interpreted by me (1pt min.). @ -Chest x-ray interpreted by me negative for acute cardiopulmonary process. CT interpreted by me (1pt min.). @ -None done U/S interpreted by me (1pt. min.). @ -None done What testing was considered but not performed or refused? (CT, X-rays, U/S, labs)? Why? @ -None What meds were considered but not given or refused? Why? @ -None Did you discuss the management of the patient with other professionals (professionals i.e. , PA, ACCOUNTING MACHINE SERVICER, lab, RT, psych nurse, social group worker, cyber threat analyst, teacher, ship's officer, special education case manager)? Give summary @ -No Was smoking cessation discussed for >3mins.? @ -I discussed smoking cessation for greater than 3 minutes. The risk of smoking were discussed with the patient including but not limited to risks of cancer, stroke, coronary artery disease and COPD. Also discussed with patient were multiple methods of quitting smoking. Lastly we discussed the financial cost of smoking. Was critical care preformed (if so, how long)? @ -No Were there social determinants of health that impacted care today? How? (Homelessness, low income, unemployed, alcoholism, drug addiction, transportation, low edu. Level, literacy, decrease access to med. care, residential, rehab)? @ -No Was there de-escalation of care discussed even if they declined (Discuss DNR or withdrawal of care, Hospice)? DNR status @ -No What co-morbidities impacted this encounter? (DM, HTN, Smoking, COPD, CAD, Cancer, CVA, ARF, Chemo, Hep., AIDS, mental health diagnosis, sleep apnea, morbid obesity)? @ -Marijuana smoker Was patient admitted / discharged? Hospital course, mention meds given and route, prescriptions, significant lab abnormalities, going to OR and other pertinent info. @ -Discharge. 24-year-old female presented to the ER with a chief complaint of hematemesis. History and physical exam completed. Vitals stable. Patient no signs acute distress and nontoxic-appearing. No focal abdominal tenderness on exam. Laboratory studies obtained significant for cytosis of 14.7 with a left shift. Otherwise unremarkable. COVID, influenza, RSV negative. Chest x-ray interpreted by me negative for acute cardiopulmonary process. Symptoms controlled in the ER with IV fluids and Zofran. Results discussed with patient, all questions answered. Zofran prescribed. Advised close follow-up with PCP. Return parameters discussed. Patient discharged in stable condition with foll ow-up to PCP. Patient verbally expressed understanding and agreement with care plan. Undiagnosed new problem with uncertain prognosis? @ -No Drug Therapy requiring intensive monitoring for toxicity (Heparin, Nitro, Insulin, Cardizem)? @ -No Were any procedures done? @ -No Diagnosis/symptom? @ -Nausea and vomiting Acute, or Chronic, or Acute on Chronic? @ -Acute Uncomplicated (without systemic symptoms) or Complicated (systemic symptoms)? @ -Uncomplicated Side effects of treatment? @ -No Exacerbation, Progression, or Severe Exacerbation? @ -No Poses a threat to life or bodily function? How? (Chest pain, USA, SD, pneumonia, PE, COPD, DKA, ARF, appy, cholecystitis, CVA, Diverticulitis, Homicidal, Suicidal, threat to staff... and all critical care pts) @ -No - Lab Data Result diagrams: 03/25/24 02:59 03/25/24 02:59 Lab Results 03/25/24 03/25/24 03/25/24 Range/Units 02:59 02:59 02:59 WBC 14.7 H (3.8-10.6) k/uL RBC 4.65 (3.80-5.40) m/uL Hgb 13.7 (11.4-16.0) gm/dL Hct 42.5 (34.0-46.0) % MCV 91.4 (80.0-100.0) fL MCH 29.4 (25.0-35.0) pg MCHC 32.1 (31.0-37.0) g/dL RDW 13.1 (11.5-15.5) % Plt Count 180 (150-450) k/uL MPV 8.0 Neutrophils % 91 % Lymphocytes % 4 % Monocytes % 4 % Eosinophils % 1 % Basophils % 0 % Neutrophils # 13.4 H (1.3-7.7) k/uL Lymphocytes # 0.5 L (1.0-4.8) k/uL Monocytes # 0.5 (0-1.0) k/uL Eosinophils # 0.2 (0-0.7) k/uL Basophils # 0.0 (0-0.2) k/uL Sodium 138 (137-145) mmol/L Potassium 4.2 (3.5-5.1) mmol/L Chloride 104 (98-107) mmol/L Carbon Dioxide 25 (22-30) mmol/L Anion Gap 9 mmol/L BUN 19 H (7-17) mg/dL Creatinine 0.61 (0.52-1.04) mg/dL Est GFR (CKD-EPI)AfAm >90 (>60 ml/min/1.73 sqM) Est GFR (CKD-EPI)NonAf >90 (>60 ml/min/1.73 sqM) Glucose 103 H (74-99) mg/dL Calcium 9.7 (8.4-10.2) mg/dL Total Bilirubin 1.2 (0.2-1.3) mg/dL AST 24 (14-36) U/L ALT 17 (4-34) U/L Alkaline Phosphatase 54 (38-126) U/L Total Protein 7.5 (6.3-8.2) g/dL Albumin 4.8 (3.5-5.0) g/dL Influenza Type A (PCR) Not Detected (Not Detectd) Influenza Type B (PCR) Not Detected (Not Detectd) RSV (PCR) Not Detected (Not Detectd) SARS-CoV-2 (PCR) Not Detected (Not Detectd) - Radiology Data Radiology results: report reviewed, image reviewed Disposition Clinical Impression: Nausea and vomiting Disposition: HOME SELF-CARE Condition: Stable Instructions (If sedation given, give patient instructions): Acute Nausea and Vomiting (ED) Additional Instructions: Please follow-up with PCP. Return to the ER for any new or worsening concerns. Prescriptions: Ondansetron Odt [Zofran Odt] 4 mg PO Q8HR PRN #10 tab PRN Reason: Nausea Is patient prescribed a controlled substance at d/c from ED?: No Referrals: Nury Shine MD [Primary Care Provider] - 1-2 days Time of Disposition: 04:30
[2024-03-25 02:21] VITALS: RESP 18; TEMP 97.8
--- NOTE | 2024-03-25 03:11 | XR ---
EXAM: XR Chest, 2 Views CLINICAL HISTORY: ITS.REASON XR Reason: hematemesis TECHNIQUE: Frontal and lateral views of the chest. COMPARISON: No relevant prior studies available. FINDINGS: Lungs: No consolidation or mass. Pleural space: No effusion. Heart: No cardiomegaly. Bones/joints: No acute findings. IMPRESSION: No acute cardiopulmonary process.
[2024-03-25 03:14] LABS: Basophils % (A) 0 %; Eosinophils # (A) 0.2 k/uL (0-0.7); Eosinophils % (A) 1 %; HCT 42.5 % (34.0-46.0); HGB 13.7 gm/dL (11.4-16.0); Lymphocytes # (A) 0.5 k/uL (1.0-4.8); Lymphocytes % (A) 4 %; MCH 29.4 pg (25.0-35.0); MCHC 32.1 g/dL (31.0-37.0); MCV 91.4 fL (80.0-100.0); Monocytes # (A) 0.5 k/uL (0-1.0); Monocytes % (A) 4 %; Neutrophils # (A) 13.4 k/uL (1.3-7.7); Neutrophils % (A) 91 %; Platelet Count 180 k/uL (150-450); RBC 4.65 m/uL (3.80-5.40); RDW 13.1 % (11.5-15.5); WBC 14.7 k/uL (3.8-10.6)
[2024-03-25] MEDS: ONDANSETRON 4 MG/2 ML VIAL IVP STA (03:17)
[2024-03-25] MEDS: SODIUM CHLORIDE 0.9% 1,000 ML IV STA (03:18)
[2024-03-25 03:25] LABS: ALT 17 U/L (4-34); AST 24 U/L (14-36); African American GFR (CKD) >90 (>60 ml/min/1.73 sqM); Albumin 4.8 g/dL (3.5-5.0); Alkaline Phosphatase 54 U/L (38-126); Anion Gap 9 mmol/L; Blood Urea Nitrogen 19 mg/dL (7-17); Calcium 9.7 mg/dL (8.4-10.2); Carbon Dioxide 25 mmol/L (22-30); Chloride 104 mmol/L (98-107); Glucose 103 mg/dL (74-99); Non-African American GFR(CKD) >90 (>60 ml/min/1.73 sqM); Potassium 4.2 mmol/L (3.5-5.1); Sodium 138 mmol/L (137-145); Total Bilirubin 1.2 mg/dL (0.2-1.3); Total Protein 7.5 g/dL (6.3-8.2)
[2024-03-25 07:59] VITALS: BP 110/69; PULSE 72
== END 2024-03-25 05:54 | disposition home or self-care (01) ==
LOC: EC 01:22
DX: R11.2 Nausea with vomiting, unspecified (principal); F17.200 Nicotine dependence, unspecified, uncomplicated; Z88.5 Allergy status to narcotic agent; Z91.040 Latex allergy status; Z88.8 Allergy status to other drugs, medicaments and biological substances
CPT/HCPCS: 36415; 80053; 85025; 87636; 71046; 99284; 96374; 96361; 99406; J2405

== ENCOUNTER → 2024-09-16 | Outpatient (CLI) | payer OTHER ==
--- NOTE | 2024-09-16 09:04 | MR ---
EXAMINATION TYPE: MR liver wo/w con DATE OF EXAM: 09/16/2024 8:05 AM INDICATION: Patient age:Female; 24 years old; Reason for study: K76.9 LIVER DISEASE; PHH. COMPARISON: MR liver 02/11/2024 TECHNIQUE: Multiplanar multi-sequence imaging was performed without and with IV contrast. The patien t was given 6 ccs of Gadavist intravenously and dynamic imaging was performed. Post IV contrast subtr action images were also submitted for review. FINDINGS: LOWER CHEST: No gross irregularity. ABDOMEN Liver: No evidence for hepatic steatosis or cirrhosis. There is redemonstration of a 2.3 x 1.9 cm les ion within the left hepatic lobe (series 901, image 391). Patient measure 2.4 x 1.7 cm. Demonstrates arterial phase enhancement which blends in with the surrounding parenchyma on the delayed imaging. Neves btle hyperintense on T2 imaging. Isointense on T1 imaging. No dropout of signal on out of phase imagi ng. No central scar identified. No new suspicious hepatic lesions. Gallbladder and Bile ducts: No evidence for ductal dilation, or biliary stricture or evidence of chol edocholithiasis. The gallbladder is within normal limits. Pancreas: No ductal dilation. No evidence for solid mass. Spleen: Normal for size. Adrenal glands: Unremarkable. Kidneys: No evidence for obstructive uropathy. No suspicious renal masses. Stomach and Bowel: No evidence for bowel wall thickening or evidence for obstruction. Retroperitoneum/Peritoneum: No evidence of pneumoperitoneum or free fluid. Vasculature: No aortic aneurysm. Musculoskeletal: The osseous structures appear intact. Lymph Nodes: No evidence for lymphadenopathy. Abdominal wall: Unremarkable. IMPRESSION: Stable left hepatic lobe 2.3 cm enhancing lesion which becomes isointense to background liver on amparo yed imaging. MRI characteristics are most consistent with an adenoma again. [facility], , 09/16/2024 9:01 AM
== END | disposition home or self-care (01) ==
LOC: RADMRIMAIN 07:08
PROVIDERS: ATTEND Internal Medicine Gastroenterology
DX: K76.9 Liver disease, unspecified (principal)
CPT/HCPCS: 74183

== ENCOUNTER → 2024-11-24 | Outpatient (CLI) | payer OTHER ==
--- NOTE | 2024-11-24 22:46 | US ---
EXAMINATION TYPE: US thyroid st tissue head/neck DATE OF EXAM: 11/24/2024 COMPARISON: NONE CLINICAL INDICATION: Female, 24 years old with history of R22.1 LOCALIZED SWELLING, MASS AND LUMP, NE CK; Pt states palpable lump right posterior/lateral neck x 1 month TECHNIQUE: Superficial right/lateral posterior neck FINDINGS: Area of pt's palpable scanned- within right lateral/posterior neck- there is a subdural hypoechoic ar ea at palp= 9 x 2 x 8 mm, no vascularity within. Small lymph node may be present. Clinical managemen t is recommended. Follow-up imaging can be performed as clinically indicated or for change in clinica l signs. IMPRESSION: 1. Small hypoechoic area within the subcutaneous tissues suspected be a small lymph node. Follow-up a s clinically indicated. [facility], , 11/24/2024 10:43 PM
== END | disposition home or self-care (01) ==
LOC: RADUSWWP 16:07
PROVIDERS: ATTEND Family Medicine
DX: R22.1 Localized swelling, mass and lump, neck (principal)
CPT/HCPCS: 76536